=== PATIENT | female | born 1950 | race Caucasian/White ===

== ENCOUNTER 2022-06-16 11:19 | Inpatient (IN) | payer MEDICARE, OTHER ==
[~2022-06-16] VITALS: Ht 167.6 cm; Wt 80.7 kg
[~2022-06-16 11:19] MED LIST: AZITHROMYCIN250 MG; CLONIDINE HCL0.1 MG PO; NORCO 10-325 T1 EACH PO; QUINAPRIL HCL20 MG PO
[2022-06-16] MEDS ORDERED: SODIUM CHLORIDE FLUSH 10 ML SYR INJ PRN (15:00)
[2022-06-16] MEDS ORDERED: ONDANSETRON HCL INJ 2MG/ML 2ML 2 MG/ML VIAL IV PRN (15:00)
[2022-06-16] MEDS: HYDROCODONE/APAP 5MG-325MG TAB PO PRN ×2 (16:15→16:40)
[2022-06-16] MEDS: ONDANSETRON HCL 4 MG ORAL DISINTEGRATING TAB PO PRN ×2 (16:15→16:40)
[2022-06-16] MEDS ORDERED: ACETAMINOPHEN 325 MG TAB PO PRN (20:15)
[2022-06-16] MEDS: Morphine 4mg INJECTION 4 MG/ML INJ IV PRN (21:20)
[2022-06-16] MEDS: SODIUM CHLORIDE 0.45% 1,000 ML IV SCH (21:20)
[2022-06-16] MEDS ORDERED: METOPROLOL TARTRATE INJ 1 MG/ML VIAL IV ONE (22:15)
[2022-06-16] MEDS: METOPROLOL TARTRATE INJ 1 MG/ML VIAL IV PRN (22:40)
[2022-06-16] MEDS ORDERED: CLONIDINE HCL 0.1 MG TAB PO ONE (22:45)
[2022-06-16] MEDS: HYDROCODONE/APAP 10MG-325MG TAB PO SCH (23:24)
[2022-06-17] VITALS (11 sets, daily range): BP systolic 152–194; BP diastolic 92–126
[2022-06-17] MEDS: Morphine 4mg INJECTION 4 MG/ML INJ IV PRN ×2 (01:00→07:50)
[2022-06-17] MEDS: OYST-CAL-D 500MG TABLET PO SCH ×4 (01:00→21:59)
[2022-06-17] MEDS ORDERED: ACETAMINOPHEN-1 EAC4 PO (01:40)
[2022-06-17] MEDS: HYDROCODONE/APAP 10MG-325MG TAB PO SCH ×3 (03:36→09:21)
[2022-06-17] MEDS: METOPROLOL TARTRATE INJ 1 MG/ML VIAL IV PRN ×3 (03:36→10:34)
[2022-06-17 06:29] LABS: BASOPHILS % 0.2 % (0.0-1.0); EOSINOPHILS % 0.1 % (0.0-6.0); HEMATOCRIT 43.4 % (34.2-44.1); HEMOGLOBIN 14.2 g/dL (12.0-16.0); LYMPHOCYTES # (AUTO) 1.1 (1.0-3.2); LYMPHOCYTES % 12.2 % (18.0-39.1); MEAN CORPUSCULAR HEMOGLOBIN 30.9 pg (28-32); MEAN CORPUSCULAR HGB CONC 32.7 g/dL (31-35); MEAN CORPUSCULAR VOLUME 94.6 fL (81-99); MONOCYTES # (AUTO) 0.6 (0.2-0.8); MONOCYTES % 6.4 % (4.4-11.3); NEUTROPHILS # (AUTO) 7.4 (2.1-6.9); NEUTROPHILS % 80.8 % (38.7-80.0); PLATELET COUNT 326 x10e3/uL (140-360); RED BLOOD COUNT 4.59 x10e6/uL (3.6-5.1); RED CELL DISTRIBUTION WIDTH 12.6 % (11.7-14.4)
[2022-06-17 08:58] LABS: CALCIUM 9.5 mg/dL (8.4-10.2); CREATININE, SERUM 0.59 mg/dL (0.57-1.11)
[2022-06-17] MEDS ORDERED: CLONIDINE HCL 0.1 MG TAB PO SCH (09:00)
[2022-06-17] MEDS: FAMOTIDINE 20 MG TAB PO SCH ×2 (09:21→17:08)
[2022-06-17] MEDS: SODIUM CHLORIDE 0.45% 1,000 ML IV SCH (12:55)
[2022-06-17] MEDS ORDERED: NIFEDIPINE CR 30 MG TAB PO ONE (13:00)
[2022-06-17] MEDS ORDERED: METOPROLOL TARTRATE 25 MG TAB PO ONE (13:00)
[2022-06-17] MEDS: ACETAMINOPHEN/CODEINE 300MG - 30MG TAB PO PRN ×2 (14:07→19:48)
[2022-06-17] MEDS: CLONIDINE HCL 0.1 MG TAB PO SCH ×2 (14:07→22:00)
[2022-06-17] MEDS: METOPROLOL TARTRATE 25 MG TAB PO SCH (21:59)
[2022-06-17] MEDS: NIFEDIPINE CR 30 MG TAB PO SCH (21:59)
[2022-06-18] VITALS: BP 139/100
[2022-06-18 04:00] VITALS: BP 191/114
[2022-06-18 04:40] LABS: BASOPHILS % 0.3 % (0.0-1.0); HEMATOCRIT 42.4 % (34.2-44.1); HEMOGLOBIN 14.7 g/dL (12.0-16.0); LYMPHOCYTES # (AUTO) 1.3 (1.0-3.2); LYMPHOCYTES % 13.1 % (18.0-39.1); MEAN CORPUSCULAR HEMOGLOBIN 30.8 pg (28-32); MEAN CORPUSCULAR HGB CONC 34.7 g/dL (31-35); MONOCYTES # (AUTO) 0.8 (0.2-0.8); MONOCYTES % 8.5 % (4.4-11.3); NEUTROPHILS # (AUTO) 7.5 (2.1-6.9); NEUTROPHILS % 77.7 % (38.7-80.0); PLATELET COUNT 429 x10e3/uL (140-360); RED BLOOD COUNT 4.77 x10e6/uL (3.6-5.1); RED CELL DISTRIBUTION WIDTH 12.7 % (11.7-14.4)
[2022-06-18 04:44] LABS: MEAN CORPUSCULAR VOLUME 88.9 fL (81-99)
[2022-06-18 05:02] LABS: ANION GAP 16.4 mmol/L (8-16); CREATININE, SERUM 0.63 mg/dL (0.57-1.11); POTASSIUM 3.4 mmol/L (3.5-5.1)
[2022-06-18] MEDS: SODIUM CHLORIDE 0.45% 1,000 ML IV SCH (05:35)
[2022-06-18] MEDS: CLONIDINE HCL 0.1 MG TAB PO SCH (05:44)
[2022-06-18] MEDS: ACETAMINOPHEN/CODEINE 300MG - 30MG TAB PO PRN ×2 (06:23→10:29)
[2022-06-18] MEDS: METOPROLOL TARTRATE INJ 1 MG/ML VIAL IV PRN ×2 (06:24→13:09)
[2022-06-18 08:00] VITALS: BP 152/97
[2022-06-18 08:17] VITALS: BP 152/97
[2022-06-18] MEDS ORDERED: Calcium Carbonate PO (09:49)
[2022-06-18] MEDS ORDERED: FAMOTIDINE20 MG PO (09:49)
[2022-06-18] MEDS ORDERED: LOPRESSOR25 MG PO (09:49)
[2022-06-18] MEDS ORDERED: TYLENOL325 MG PO (09:49)
[2022-06-18] MEDS ORDERED: NIFEDIPINE ER30 M1 PO (09:49)
[2022-06-18] MEDS ORDERED: CLONIDINE HCL0.1 MG PO (09:49)
[2022-06-18] MEDS ORDERED: CALTRATE 600 W1 EACH PO (09:53)
[2022-06-18] MEDS: FAMOTIDINE 20 MG TAB PO SCH (10:25)
[2022-06-18] MEDS: OYST-CAL-D 500MG TABLET PO SCH (10:26)
[2022-06-18] MEDS: METOPROLOL TARTRATE 25 MG TAB PO SCH (10:26)
[2022-06-18] MEDS: NIFEDIPINE CR 30 MG TAB PO SCH (10:26)
[2022-06-18] MEDS ORDERED: POTASSIUM CHLORIDE 20 MEQ TAB CR PO ONE (10:30)
[2022-06-18 12:00] VITALS: BP 161/110
== END 2022-06-18 14:34 | disposition home or self-care (01) | DRG 563 ==
LOC: ER 11:30 → ERHOLD 14:52 → MED/SURG 06-17 00:02
PROVIDERS: ADMIT Internal Medicine; ATTEND Internal Medicine
PROC: 2W3BX1Z Immobilization of Left Upper Arm using Splint (ICD-10-PCS; principal; 2022-06-16)
DX: S52.572A Other intraarticular fracture of lower end of left radius, initial encounter for closed fracture (principal); S52.612A Displaced fracture of left ulna styloid process, initial encounter for closed fracture; W19.XXXA Unspecified fall, initial encounter; Y93.89 Activity, other specified; Y92.009 Unspecified place in unspecified non-institutional (private) residence as the place of occurrence of the external cause; Z20.822 Contact with and (suspected) exposure to COVID-19
CPT/HCPCS: 0223U; 36415; 80048; 85025; 94799; 99284; J2270; J2405; Q0162

== ENCOUNTER 2024-02-29 19:16 | Inpatient (IN) | payer MEDICARE, OTHER ==
[~2024-02-29] VITALS: Ht 160 cm; Wt 80.7 kg
[~2024-02-29 19:16] MED LIST changes: +ACETAMINOPHEN-1 EAC4 PO; +CALTRATE 600 W1 EACH PO; +Calcium Carbonate PO; +FAMOTIDINE20 MG PO; +LOPRESSOR25 MG PO; +NIFEDIPINE ER30 M1 PO; +TYLENOL325 MG PO
[2024-02-29 19:28] VITALS: TEMP 99.3
[2024-02-29 20:04] LABS: BASOPHILS % 0.5 % (0.0-1.0); EOSINOPHILS # (AUTO) 0.3 (0.0-0.4); EOSINOPHILS % 5.3 % (0.0-6.0); HEMATOCRIT 36.3 % (34.2-44.1); HEMOGLOBIN 11.6 g/dL (12.0-16.0); LYMPHOCYTES # (AUTO) 1.6 (1.0-3.2); LYMPHOCYTES % 26.8 % (18.0-39.1); MEAN CORPUSCULAR VOLUME 93.8 fL (81-99); MONOCYTES # (AUTO) 0.6 (0.2-0.8); MONOCYTES % 10.9 % (4.4-11.3); NEUTROPHILS # (AUTO) 3.3 (2.1-6.9); NEUTROPHILS % 56.3 % (38.7-80.0); PLATELET COUNT 364 x10e3/uL (140-360); RED BLOOD COUNT 3.87 x10e6/uL (3.6-5.1); RED CELL DISTRIBUTION WIDTH 14.9 % (11.7-14.4); WHITE BLOOD COUNT 5.86 x10e3/uL (4.8-10.8)
[2024-02-29 20:11] VITALS: PULSE 106; RESP 20; O2SAT 96
[2024-02-29] MEDS: LEVALBUTEROL HCL SOLN NEBU 1.25 MG/3 ML NEB INH ONE (20:14)
[2024-02-29] MEDS: IPRATROPIUM BROMIDE 0.02% 2.5 ML NEB NEB ONE (20:15)
[2024-02-29 20:20] LABS: ALBUMIN 3.7 g/dL (3.5-5.0); ALBUMIN/GLOBULIN RATIO 0.9 (0.8-2.0); ANION GAP 18.1 mmol/L (8-16); BILIRUBIN,TOTAL 0.3 mg/dL (0.2-1.2); CALCIUM 9.4 mg/dL (8.4-10.2); CREATININE, SERUM 0.67 mg/dL (0.57-1.11); POTASSIUM 4.1 mmol/L (3.5-5.1); TOTAL PROTEIN 7.6 g/dL (6.5-8.1)
[2024-02-29 20:26] LABS: B-TYPE NATRIURETIC PEPTIDE2 13.8 pg/mL (0-100)
[2024-02-29] MEDS: ACETAMINOPHEN 325 MG TAB PO ONE (20:26)
[2024-02-29] MEDS: METHYLPREDNISOLONE SOD SUCC 125 MG/2ML VIAL IV ONE (20:27)
[2024-02-29 21:03] LABS: INFLUENZAE A&B ANTIGEN (RAPID) NEGATIVE (NEGATIVE); RESPIRATORY SYNC. VIRUS NEGATIVE (NEGATIVE)
[2024-02-29 21:50] LABS: CLARITY,URINE CLEAR (CLEAR); COLOR,URINE YELLOW (YELLOW)
[2024-02-29 21:51] LABS: BILIRUBIN,URINE NEGATIVE (NEGATIVE); GLUCOSE, URINE NEGATIVE (NEGATIVE); KETONES,URINE NEGATIVE (NEGATIVE); LEUKOCYTE ESTERASE ,URINE NEGATIVE (NEGATIVE); NITRITE,URINE NEGATIVE (NEGATIVE); PH,URINE 7 (5 - 7); PROTEIN,URINE DIPSTICK NEGATIVE (NEGATIVE); RBC,URINE 0-5 /HPF (0-5); URINE UROBILINOGEN 0.2 mg/dL (0.2 - 1)
[2024-02-29 21:57] LABS: BACTERIA,URINE MODERATE /HPF; EPITHELIAL CELLS,URINE MANY /LPF; MUCUS,URINE MODERATE (RARE)
[2024-02-29] MEDS: SODIUM CHLORIDE 0.9% 1000ML 1,000 ML IV SCH (22:47)
[2024-03-01] VITALS (23 sets, daily range): BP systolic 115–160; BP diastolic 57–98; PULSE 93–121; RESP 13–24; TEMP 97.5–98.4; O2SAT 97–100
[2024-03-01] MEDS: METHYLPREDNISOLONE SOD SUCC 40 MG/ML VIAL 1ML IV SCH ×2 (00:08→20:38)
[2024-03-01] MEDS: ALBUTEROL/IPRATROPIUM 3 ML NEB NEB SCH (01:26)
[2024-03-01] MEDS ORDERED: AMLODIPINE-VAL1 EAC2 PO (02:48)
[2024-03-01] MEDS ORDERED: OMEPRAZOLE40 MG PO (02:48)
[2024-03-01] MEDS ORDERED: CLONIDINE HCL0.2 MG PO (02:48)
[2024-03-01] MEDS ORDERED: VENTOLIN HFA18 GM INH (02:48)
[2024-03-01] MEDS ORDERED: LEVALBUTEROL HCL SOLN NEBU 0.63 MG/3 ML NEB INH PRN (09:15)
[2024-03-01 10:08] LABS: HEMATOCRIT 36.4 % (34.2-44.1); HEMOGLOBIN 11.7 g/dL (12.0-16.0); LYMPHOCYTES # (AUTO) 0.4 (1.0-3.2); LYMPHOCYTES % 8.8 % (18.0-39.1); MEAN CORPUSCULAR HEMOGLOBIN 30.2 pg (28-32); MEAN CORPUSCULAR HGB CONC 32.1 g/dL (31-35); MEAN CORPUSCULAR VOLUME 94.1 fL (81-99); MONOCYTES # (AUTO) 0.1 (0.2-0.8); MONOCYTES % 1.5 % (4.4-11.3); NEUTROPHILS # (AUTO) 3.6 (2.1-6.9); NEUTROPHILS % 89.5 % (38.7-80.0); PLATELET COUNT 330 x10e3/uL (140-360); RED BLOOD COUNT 3.87 x10e6/uL (3.6-5.1); RED CELL DISTRIBUTION WIDTH 14.8 % (11.7-14.4); WHITE BLOOD COUNT 4.07 x10e3/uL (4.8-10.8)
[2024-03-01 10:34] LABS: CREATINE KINASE 47 IU/L (29-168)
[2024-03-01] MEDS: ACETAMINOPHEN/CODEINE 300MG - 30MG TAB PO PRN (10:44)
[2024-03-01] MEDS: CLONIDINE HCL 0.2 MG TAB PO SCH (10:44)
[2024-03-01] MEDS ORDERED: PHYTONADIONE 10 MG/ML AMP SQ ONE (10:45)
[2024-03-01] MEDS: PANTOPRAZOLE SOD 40 MG TABEC PO SCH (10:45)
[2024-03-01 10:48] LABS: TROPONIN I < 0.001 ng/mL (0-0.300)
[2024-03-01 10:54] LABS: CALCIUM 9.3 mg/dL (8.4-10.2); CREATININE, SERUM 0.63 mg/dL (0.57-1.11)
[2024-03-01] MEDS: LEVALBUTEROL HCL SOLN NEBU 0.63 MG/3 ML NEB INH SCH (11:09)
[2024-03-01] MEDS: BUDESONIDE/FORMOTEROL 160/4.5MCG INHALER INH SCH (11:10)
[2024-03-01 11:26] LABS: INR 0.93; PROTHROMBIN TIME 13.1 seconds (11.9-14.5)
[2024-03-01 21:19] LABS: CREATINE KINASE 36 IU/L (29-168)
[2024-03-01 21:41] LABS: TROPONIN I < 0.001 ng/mL (0-0.300)
[2024-03-02] VITALS (34 sets, daily range): BP systolic 121–183; BP diastolic 67–121; PULSE 84–140; RESP 16–31; TEMP 98.1–98.7; O2SAT 93–100
[2024-03-02] MEDS: METOPROLOL TARTRATE INJ 1 MG/ML VIAL IV ONE ×2 (09:00→14:47)
[2024-03-02] MEDS: METHYLPREDNISOLONE SOD SUCC 40 MG/ML VIAL 1ML IV SCH (09:00)
[2024-03-02 09:03] LABS: BASOPHILS % 0.1 % (0.0-1.0); HEMOGLOBIN 12.4 g/dL (12.0-16.0); LYMPHOCYTES # (AUTO) 1.9 (1.0-3.2); LYMPHOCYTES % 22.3 % (18.0-39.1); MEAN CORPUSCULAR HEMOGLOBIN 30.2 pg (28-32); MEAN CORPUSCULAR HGB CONC 31.8 g/dL (31-35); MEAN CORPUSCULAR VOLUME 95.1 fL (81-99); MONOCYTES # (AUTO) 0.6 (0.2-0.8); MONOCYTES % 7.7 % (4.4-11.3); NEUTROPHILS # (AUTO) 5.8 (2.1-6.9); NEUTROPHILS % 69.7 % (38.7-80.0); PLATELET COUNT 370 x10e3/uL (140-360); RED CELL DISTRIBUTION WIDTH 15.5 % (11.7-14.4)
[2024-03-02] MEDS ORDERED: ACETAMINOPHEN/CODEINE 300MG - 30MG TAB PO PRN (09:30)
[2024-03-02] MEDS: FUROSEMIDE INJ 10 MG/ML 4 ML VIAL IV ONE (09:55)
[2024-03-02] MEDS: AMLODIPINE BESYLATE 10 MG TAB PO SCH (09:55)
[2024-03-02] MEDS: METOPROLOL SUCCINATE 25 MG TAB XL PO SCH (09:56)
[2024-03-02] MEDS: OLMESARTAN 20 MG TAB PO SCH (09:56)
[2024-03-02 10:26] LABS: ANION GAP 15.8 mmol/L (8-16); CALCIUM 9.8 mg/dL (8.4-10.2); CREATININE, SERUM 0.63 mg/dL (0.57-1.11); POTASSIUM 3.8 mmol/L (3.5-5.1)
[2024-03-02] MEDS: LEVALBUTEROL HCL SOLN NEBU 0.63 MG/3 ML NEB INH PRN (13:59)
[2024-03-02] MEDS: LABETALOL HCL 5 MG/ML 20ML VIAL IV PRN (17:25)
[2024-03-02] MEDS: DILTIAZEM HCL 120 MG PO SCH (18:35)
[2024-03-02] MEDS: ACETAMINOPHEN/CODEINE 300MG - 30MG TAB PO PRN (19:50)
[2024-03-02] MEDS: METOPROLOL TARTRATE INJ 1 MG/ML VIAL ONE (19:59)
[2024-03-03] VITALS (25 sets, daily range): BP systolic 132–186; BP diastolic 84–117; PULSE 80–112; RESP 18–30; TEMP 97.6–98.2; O2SAT 92–100
[2024-03-03] MEDS: FUROSEMIDE INJ 10 MG/ML 4 ML VIAL IV ONE (08:38)
[2024-03-03] MEDS: ENOXAPARIN SOD INJ 40 MG/0.4 ML SYR SC SCH (08:41)
[2024-03-03] MEDS: DILTIAZEM HCL 180 MG CAP ER PO SCH (17:23)
[2024-03-03] MEDS ORDERED: ONDANSETRON HCL INJ 2MG/ML 2ML 2 MG/ML VIAL IV PRN (18:45)
[2024-03-04] VITALS (10 sets, daily range): BP systolic 117–142; BP diastolic 80–89; PULSE 95–114; RESP 16–23; TEMP 97.8–98.6; O2SAT 93–98
[2024-03-04 04:54] LABS: BASOPHILS % 0.1 % (0.0-1.0); HEMATOCRIT 42.7 % (34.2-44.1); HEMOGLOBIN 14.3 g/dL (12.0-16.0); LYMPHOCYTES # (AUTO) 1.8 (1.0-3.2); LYMPHOCYTES % 18.9 % (18.0-39.1); MEAN CORPUSCULAR HEMOGLOBIN 30.1 pg (28-32); MEAN CORPUSCULAR HGB CONC 33.5 g/dL (31-35); MEAN CORPUSCULAR VOLUME 89.9 fL (81-99); MONOCYTES # (AUTO) 1.1 (0.2-0.8); MONOCYTES % 12.1 % (4.4-11.3); NEUTROPHILS # (AUTO) 6.4 (2.1-6.9); NEUTROPHILS % 68.7 % (38.7-80.0); PLATELET COUNT 485 x10e3/uL (140-360); RED BLOOD COUNT 4.75 x10e6/uL (3.6-5.1); RED CELL DISTRIBUTION WIDTH 14.8 % (11.7-14.4); WHITE BLOOD COUNT 9.26 x10e3/uL (4.8-10.8)
[2024-03-04 05:22] LABS: ALBUMIN 3.9 g/dL (3.5-5.0); ALBUMIN/GLOBULIN RATIO 0.8 (0.8-2.0); ANION GAP 11.6 mmol/L (8-16); BILIRUBIN,TOTAL 0.5 mg/dL (0.2-1.2); CALCIUM 10.7 mg/dL (8.4-10.2); CREATININE, SERUM 1.07 mg/dL (0.57-1.11); POTASSIUM 3.6 mmol/L (3.5-5.1); TOTAL PROTEIN 8.5 g/dL (6.5-8.1)
[2024-03-04] MEDS: LEVALBUTEROL HCL SOLN NEBU 0.63 MG/3 ML NEB INH SCH (10:29)
[2024-03-04] MEDS: AZITHROMYCIN 250 MG TAB PO SCH (22:16)
[2024-03-05] VITALS: BP 125/84; PULSE 86; RESP 22; TEMP 97.7; O2SAT 97
[2024-03-05 07:31] VITALS: PULSE 102; RESP 23; O2SAT 96
[2024-03-05 09:02] VITALS: BP 117/78; PULSE 109; RESP 18; TEMP 98.2; O2SAT 97
[2024-03-05 10:56] VITALS: PULSE 112; RESP 18; O2SAT 96
[2024-03-05 12:21] VITALS: BP 98/67; PULSE 105; RESP 19; TEMP 97.7; O2SAT 97
== END 2024-03-05 12:07 | disposition home or self-care (01) | DRG 191 ==
LOC: ER 19:22 → ERHOLD 22:02 → ICU 03-01 02:06 → MED/SURG 03-03 16:01
PROVIDERS: ADMIT Internal Medicine; ATTEND Internal Medicine
DX: J44.1 Chronic obstructive pulmonary disease with (acute) exacerbation (principal); I47.10 Supraventricular tachycardia, unspecified; I50.32 Chronic diastolic (congestive) heart failure; J96.11 Chronic respiratory failure with hypoxia; N39.0 Urinary tract infection, site not specified; J44.0 Chronic obstructive pulmonary disease with (acute) lower respiratory infection; J20.9 Acute bronchitis, unspecified; I11.0 Hypertensive heart disease with heart failure; Z99.81 Dependence on supplemental oxygen; J45.998 Other asthma; K21.9 Gastro-esophageal reflux disease without esophagitis; D64.9 Anemia, unspecified; Z11.52 Encounter for screening for COVID-19; E66.9 Obesity, unspecified; Z68.31 Body mass index [BMI] 31.0-31.9, adult; G89.4 Chronic pain syndrome; Z79.51 Long term (current) use of inhaled steroids
CPT/HCPCS: 36415; 71045; 80048; 80053; 81001; 82550; 83605; 83880; 84484; 85025; 85610; 87040; 87400; 87420; 93005; 93306; 94640; 94664; 94799; 99252; 99284; J0696; J1650; J1940; J2919; J7030; J7050; U0002